=== PATIENT | female | born 1970 | race Hispanic/Latino ===

== ENCOUNTER 2017-07-18 08:24 | Emergency (ER) | payer MEDICAID, OTHER ==
[2017-07-18] MEDS ORDERED: METHYLPREDNISOLONE SOD SUCC 125MG/2ML VIAL ONE (09:18)
[2017-07-18] MEDS ORDERED: IPRATROPIUM/ALBUTEROL SULFATE 3 ML SOLUTION IH ONE (09:26)
== END 2017-07-18 10:07 | disposition home or self-care (01) ==
LOC: EDH 08:24
DX: J20.9 Acute bronchitis, unspecified (principal); I10 Essential (primary) hypertension
CPT/HCPCS: 71046; 81025; 87804 ×2; 87880; 96372; 99285; J2930

== ENCOUNTER 2018-11-26 12:34 | Emergency (ER) | payer MEDICAID, OTHER ==
[2018-11-26 12:53] LABS: APPEARANCE,URINE Cloudy (CLEAR); BILIRUBIN,URINE Negative (NEGATIVE); COLOR,URINE Yellow (YELLOW); GLUCOSE, URINE (UA) Negative (NEGATIVE); KETONES,URINE Negative (NEGATIVE); LEUKOCYTE ESTERASE ,URINE Moderate (NEGATIVE); NITRATE,URINE Negative (NEGATIVE); OCCULT BLOOD,URINE Small (NEGATIVE); PH,URINE 5.5 (5.0-8.0); PROTEIN,URINE Negative (NEGATIVE)
[2018-11-26 12:57] LABS: HCG,QUAL RESULT NEGATIVE (NEGATIVE)
[2018-11-26] MEDS ORDERED: ORPHENADRINE CITRATE 30 MG/ML ML ONE (13:30)
[2018-11-26] MEDS ORDERED: KETOROLAC TROMETHAMINE 60 MG/2 ML VIAL ONE (13:31)
[2018-11-26 13:59] LABS: BACTERIA,URINE Rare /HPF (None Seen); RBC,URINE 0-1 /HPF (0-1); SQUAMOUS EPITHELIAL CELL,UR Rare /HPF (0-2); WBC,URINE 0-1 /HPF (0-1)
[2018-11-26] MEDS ORDERED: LIDOCAINE 5% TOPICAL PATCH TP ONE (14:21)
== END 2018-11-26 14:33 | disposition home or self-care (01) ==
LOC: EDH 12:34
DX: M62.830 Muscle spasm of back (principal); M54.5 Low back pain; I10 Essential (primary) hypertension
CPT/HCPCS: 81001; 81025; 96372 ×2; 99284; J1885; J2360